=== PATIENT | female | born 1940 | race Caucasian/White ===

== ENCOUNTER 2017-05-27 09:37 | Day surgery (SDC) | payer MEDICARE, OTHER ==
[~2017-05-27 09:37] MED LIST: ALBU90OI61 INH; AMLO5 PO; AMOCLA875; AMOCLA875 PO; ASPI81CH PO; ASPI81EC; ASPI81EC PO; BELPHEER PO; BELPTAB PO; CLIN300 PO; ENOX100I SC; ESCI10 PO; GABA300 PO; HYDACE5 PO; LISI5 PO; METO25ER PO; OPANA; OXYACE5T PO; PRED20 PO; PREG25 PO; RXCLIN; STOMUL PO; TRIA80TC TOP; Ventolin5 MG/1 ML IH; WARF2 PO; WARF5 PO; ZOLP5 PO
== END 2017-05-27 11:45 | disposition home or self-care (01) ==
LOC: WOUND 09:37
PROC: 0HBKXZZ Excision of Right Lower Leg Skin, External Approach (ICD-10-PCS; principal; 2017-05-27)
DX: Z48.00 Encounter for change or removal of nonsurgical wound dressing (principal); I87.331 Chronic venous hypertension (idiopathic) with ulcer and inflammation of right lower extremity; I70.233 Atherosclerosis of native arteries of right leg with ulceration of ankle; D68.4 Acquired coagulation factor deficiency
CPT/HCPCS: 87070; 87205; G0463

== ENCOUNTER 2017-06-03 09:40 | Day surgery (SDC) | payer MEDICARE, OTHER | END 2017-06-03 11:57 | disposition home or self-care (01) | LOC: WOUND 09:40 | PROC: 0HBKXZZ Excision of Right Lower Leg Skin, External Approach (ICD-10-PCS; principal; 2017-06-03) | DX: Z48.00 Encounter for change or removal of nonsurgical wound dressing (principal); I87.331 Chronic venous hypertension (idiopathic) with ulcer and inflammation of right lower extremity; I73.9 Peripheral vascular disease, unspecified; I70.233 Atherosclerosis of native arteries of right leg with ulceration of ankle; D68.4 Acquired coagulation factor deficiency ==

== ENCOUNTER 2017-06-10 09:40 | Day surgery (SDC) | payer MEDICARE, OTHER | END 2017-06-10 10:52 | disposition home or self-care (01) | LOC: WOUND 09:40 | DX: Z48.00 Encounter for change or removal of nonsurgical wound dressing (principal); I87.331 Chronic venous hypertension (idiopathic) with ulcer and inflammation of right lower extremity; L97.812 Non-pressure chronic ulcer of other part of right lower leg with fat layer exposed; I70.233 Atherosclerosis of native arteries of right leg with ulceration of ankle; D68.4 Acquired coagulation factor deficiency; D68.51 Activated protein C resistance; Z79.01 Long term (current) use of anticoagulants ==

== ENCOUNTER 2017-06-30 10:44 | Day surgery (SDC) | payer MEDICARE, OTHER | END 2017-06-30 23:03 | disposition home or self-care (01) | LOC: WOUND 10:44 | PROC: 0HBKXZZ Excision of Right Lower Leg Skin, External Approach (ICD-10-PCS; principal; 2017-06-30) | DX: Z48.00 Encounter for change or removal of nonsurgical wound dressing (principal); I87.331 Chronic venous hypertension (idiopathic) with ulcer and inflammation of right lower extremity; L97.812 Non-pressure chronic ulcer of other part of right lower leg with fat layer exposed; I70.233 Atherosclerosis of native arteries of right leg with ulceration of ankle; D68.4 Acquired coagulation factor deficiency; Z79.01 Long term (current) use of anticoagulants | CPT/HCPCS: G0463 ==

== ENCOUNTER 2017-07-08 00:06 | Day surgery (SDC) | payer MEDICARE, OTHER | END 2017-07-08 10:12 | disposition home or self-care (01) | LOC: WOUND 00:06 | DX: Z48.00 Encounter for change or removal of nonsurgical wound dressing (principal); I87.331 Chronic venous hypertension (idiopathic) with ulcer and inflammation of right lower extremity; I70.233 Atherosclerosis of native arteries of right leg with ulceration of ankle; D68.4 Acquired coagulation factor deficiency | CPT/HCPCS: G0463 ==

== ENCOUNTER 2017-07-22 00:12 | Day surgery (SDC) | payer MEDICARE, OTHER | END 2017-07-22 22:44 | disposition home or self-care (01) | LOC: WOUND 00:12 | PROC: 0HBKXZZ Excision of Right Lower Leg Skin, External Approach (ICD-10-PCS; principal; 2017-07-22) | DX: Z48.00 Encounter for change or removal of nonsurgical wound dressing (principal); I87.331 Chronic venous hypertension (idiopathic) with ulcer and inflammation of right lower extremity; I70.233 Atherosclerosis of native arteries of right leg with ulceration of ankle; D68.4 Acquired coagulation factor deficiency | CPT/HCPCS: G0463 ==

== ENCOUNTER → 2017-11-28 | Outpatient (CLI) | payer MEDICARE, OTHER | END | disposition home or self-care (01) | LOC: LAB SHORT 16:44 → LAB EV 16:44 | DX: L03.115 Cellulitis of right lower limb (principal) | CPT/HCPCS: 87070; 87075; 87205 ==

== ENCOUNTER 2018-08-03 08:58 | Observation (INO) | payer MEDICARE, OTHER ==
[~2018-08-03] VITALS: Ht 149.9 cm; Wt 52.4 kg
[2018-08-03 10:08] LABS: BASOPHILS ABSOLUTE AUTO 0.06 K/mm3 (0.00-0.23); BASOPHILS PERCENT AUTO 1 % (0-2); EOSINOPHILS ABSOLUTE AUTO 0.08 K/mm3 (0.00-0.68); EOSINOPHILS PERCENT AUTO 1 % (0-6); Hematocrit 32.9 % (33.0-51.0); Hemoglobin 10.1 g/dL (11.5-16.0); IMMATURE GRAN ABSOLUTE AUTO 0.01 K/mm3 (0.00-0.10); IMMATURE GRAN PERCENT AUTO 0 % (0-1); LYMPHOCYTES ABSOLUTE AUTO 0.75 K/mm3 (0.84-5.20); LYMPHOCYTES PERCENT AUTO 12 % (21-46); MONOCYTES ABSOLUTE AUTO 0.41 K/mm3 (0.16-1.47); MONOCYTES PERCENT AUTO 6 % (4-13); Mean Corpuscular HGB Conc 30.7 g/dL (31.5-36.5); Mean Corpuscular Volume 91 fL (80-100); Mean Platelet Volume 8.8 fL (9.1-12.4); NEUTROPHILS ABSOLUTE AUTO 5.13 K/mm3 (1.96-9.15); NEUTROPHILS PERCENT AUTO 80 % (41-73); Platelet Count 415 K/mm3 (150-400); RDW Coefficient Variation 13.7 % (11.7-14.2); RDW Standard Deviation 46.3 fL (35.1-46.3); Red Blood Cell Count 3.61 M/mm3 (3.80-5.20); White Blood Cell Count 6.44 K/mm3 (4.00-11.30)
[2018-08-03 10:22] LABS: Anion Gap 10 mmol/L (6-16); Blood Urea Nitrogen 20 mg/dL (8-24); Bun/Creatinine Ratio 28.2 (12.0-20.0); CO2, Blood 26 mmol/L (21-32); Calcium, Blood 9.2 mg/dL (8.5-10.1); Chloride, Blood 108 mmol/L (98-108); Creatinine, Blood 0.71 mg/dL (0.40-1.00); Glomerular Filtration Rate >60 (60-); Glucose, Blood 87 mg/dL (70-99); Potassium, Blood 3.5 mmol/L (3.5-5.5); Sodium, Blood 144 mmol/L (136-145)
[2018-08-03 13:00] LABS: International Normalized Ratio 2.98; Prothrombin Time Results 28.6 Sec (9.7-11.5)
[2018-08-03] MEDS ORDERED: WARF2.5 PO (14:21)
[2018-08-03] MEDS ORDERED: GABA400 PO (14:24)
[2018-08-03] MEDS ORDERED: OXYC5 PO (14:25)
[2018-08-03] MEDS ORDERED: NITR.4SL SL (14:27)
[2018-08-03] MEDS ORDERED: ROSU5 PO (14:31)
[2018-08-03] MEDS ORDERED: COMBIVENT RESPIM4 GM INH (14:33)
--- NOTE | 2018-08-03 14:40 | NUR ---
pt arrived to room 208 from er dept pt is sitting on edge of the bed pt stated that she has been having blood and pus and pain with voids pt stated she was in a snf for vascular surg in [place] and had a pascal cath and had pain with the cath pt stated she has had chills and flank pain but stated she has back pain also stated her dr told her she has small back fx she takes oxy 5 mg every 6 hrs at home for her back pain will call dr briscoe to get this ordered
--- NOTE | 2018-08-03 17:14 | NUR ---
pt visiting with her family
--- NOTE | 2018-08-03 17:18 | NUR ---
pt eating dinner
--- NOTE | 2018-08-03 21:15 | NUR ---
WOUND CARE REMOVED PREVIOUS DRESSING TO BLE. PHOTOS TAKEN. LOCATED BOTH PERIPHERAL PULSES WITH DOPPLER AND MARKED LOCATION. CLEANED THE MULTIPLE VASCULAR ULCER WOUNDS (ONE ON RIGHT INNER ANKLE, ONE ONE LEFT LATERAL ANKLE, 2 SMALLER ON TOP OF LEFT FOOT-SEE PHOTO FOR SIZES) APPLIED XEROFORM TO ALL WOUNDS AND FOAM DRESSING AND SECURED WITH KERLEX.
[2018-08-04 06:04] LABS: BASOPHILS ABSOLUTE AUTO 0.06 K/mm3 (0.00-0.23); BASOPHILS PERCENT AUTO 1 % (0-2); EOSINOPHILS PERCENT AUTO 2 % (0-6); Hematocrit 29.4 % (33.0-51.0); Hemoglobin 9.2 g/dL (11.5-16.0); IMMATURE GRAN ABSOLUTE AUTO 0.01 K/mm3 (0.00-0.10); IMMATURE GRAN PERCENT AUTO 0 % (0-1); LYMPHOCYTES ABSOLUTE AUTO 1.12 K/mm3 (0.84-5.20); LYMPHOCYTES PERCENT AUTO 18 % (21-46); MONOCYTES ABSOLUTE AUTO 0.54 K/mm3 (0.16-1.47); MONOCYTES PERCENT AUTO 9 % (4-13); Mean Corpuscular HGB 28.8 pg (26.0-34.0); Mean Corpuscular HGB Conc 31.3 g/dL (31.5-36.5); Mean Corpuscular Volume 92 fL (80-100); Mean Platelet Volume 8.8 fL (9.1-12.4); NEUTROPHILS ABSOLUTE AUTO 4.27 K/mm3 (1.96-9.15); NEUTROPHILS PERCENT AUTO 70 % (41-73); Platelet Count 391 K/mm3 (150-400); RDW Coefficient Variation 13.8 % (11.7-14.2); RDW Standard Deviation 47.1 fL (35.1-46.3)
--- NOTE | 2018-08-04 06:11 | NUR ---
PT DID WELL DURING NIGHT. BIGGEST COMPLAINT WAS LOWER BACK PAIN R/T COMPRESSION FX'S. PT HAS BEEN AMBLATING WITH ONE PERSON ASSIST TO BR, URINE APPEARS MORE CLEAR. DRESSINGS TO BLE ARE DRY AND INTACT. CONT CURRENT TREATMENT PLAN. CALL LIGHT IN REACH.
[2018-08-04 06:23] LABS: Anion Gap 8 mmol/L (6-16); Blood Urea Nitrogen 13 mg/dL (8-24); Bun/Creatinine Ratio 20.6 (12.0-20.0); CO2, Blood 24 mmol/L (21-32); Calcium, Blood 8.8 mg/dL (8.5-10.1); Chloride, Blood 109 mmol/L (98-108); Creatinine, Blood 0.63 mg/dL (0.40-1.00); Glomerular Filtration Rate >60 (60-); Glucose, Blood 85 mg/dL (70-99); Potassium, Blood 3.5 mmol/L (3.5-5.5); Sodium, Blood 141 mmol/L (136-145)
[2018-08-04 06:24] LABS: International Normalized Ratio 3.49
[2018-08-04] MEDS ORDERED: Nebcin40 MG/ML IV (12:32)
--- NOTE | 2018-08-04 14:30 | NUR ---
powerglide olaced to left upper arm by malcom box rn. discharge instructions reviewed with patients and questions answered. atc appt scheduled for 08/05/18 at 1100. patient discharged to home with her
[2018-08-05] MEDS ORDERED: ACET325 PO (11:25)
== END 2018-08-04 14:25 | disposition home or self-care (01) ==
LOC: ER 08:58 → ERHOLD 08:59 → SURS 08:59 → ER 11:33 → SURS 11:33 → ERHOLD 11:33 → SURS 14:41
PROVIDERS: Physician Assistant; ADMIT Internal Medicine
DX: N39.0 Urinary tract infection, site not specified (principal); B96.5 Pseudomonas (aeruginosa) (mallei) (pseudomallei) as the cause of diseases classified elsewhere; M54.5 Low back pain; R31.9 Hematuria, unspecified; I73.9 Peripheral vascular disease, unspecified; D68.51 Activated protein C resistance; Z87.891 Personal history of nicotine dependence; Z79.899 Other long term (current) drug therapy; Z79.01 Long term (current) use of anticoagulants
CPT/HCPCS: 36415; 80048; 80200; 83605; 85025; 85610; 96374; 99284-25; G0378; J2185; J3260; J7030

== ENCOUNTER 2018-08-05 05:14 | Day surgery (SDC) | payer MEDICARE, OTHER ==
[~2018-08-05 05:14] MED LIST changes: +COMBIVENT RESPIM4 GM INH; +GABA400 PO; +NITR.4SL SL; +Nebcin40 MG/ML IV; +OXYC5 PO; +ROSU5 PO; +WARF2.5 PO
[2018-08-05] MEDS ORDERED: ACET325 PO (11:25)
[2018-08-05 11:58] LABS: Tobramycin, Trough 0.5 ug/mL (0.0-1.9)
== END 2018-08-05 12:58 | disposition home or self-care (01) ==
LOC: ATC 05:14
PROVIDERS: Internal Medicine
DX: N39.0 Urinary tract infection, site not specified (principal)
CPT/HCPCS: 80200; 96365; J3260

== ENCOUNTER 2018-08-07 13:31 | Day surgery (SDC) | payer MEDICARE, OTHER ==
[~2018-08-07 13:31] MED LIST changes: +ACET325 PO
== END 2018-08-07 22:55 | disposition home or self-care (01) ==
LOC: ATC 13:31
DX: N39.0 Urinary tract infection, site not specified (principal)
CPT/HCPCS: J3260

== ENCOUNTER 2018-08-08 13:18 | Day surgery (SDC) | payer MEDICARE, OTHER ==
[2018-08-08 14:23] LABS: Creatinine, Blood 0.84 mg/dL (0.40-1.00); Tobramycin, Trough 0.9 ug/mL (0.0-1.9)
== END 2018-08-08 14:06 | disposition home or self-care (01) ==
LOC: ATC 13:18
PROVIDERS: Internal Medicine
DX: N39.0 Urinary tract infection, site not specified (principal); B96.5 Pseudomonas (aeruginosa) (mallei) (pseudomallei) as the cause of diseases classified elsewhere; D68.51 Activated protein C resistance; M81.0 Age-related osteoporosis without current pathological fracture; Z87.891 Personal history of nicotine dependence; Z88.1 Allergy status to other antibiotic agents; Z79.01 Long term (current) use of anticoagulants
CPT/HCPCS: 80200; 82565; 96365; J3260

== ENCOUNTER 2018-08-09 00:11 | Day surgery (SDC) | payer MEDICARE, OTHER | END 2018-08-09 12:12 | disposition home or self-care (01) | LOC: ATC 00:11 | DX: N39.0 Urinary tract infection, site not specified (principal); B96.5 Pseudomonas (aeruginosa) (mallei) (pseudomallei) as the cause of diseases classified elsewhere; D68.51 Activated protein C resistance; M81.0 Age-related osteoporosis without current pathological fracture; Z87.891 Personal history of nicotine dependence; Z88.1 Allergy status to other antibiotic agents; Z79.01 Long term (current) use of anticoagulants | CPT/HCPCS: 96365; J3260 ==

== ENCOUNTER 2018-08-10 00:13 | Day surgery (SDC) | payer MEDICARE, OTHER ==
[2018-08-10 15:16] LABS: Prothrombin Time Results 46.6 Sec (9.7-11.5)
[2018-08-10 15:20] LABS: International Normalized Ratio 5.1
== END 2018-08-10 15:05 | disposition home or self-care (01) ==
LOC: ATC 00:13
PROVIDERS: Internal Medicine Cardiovascular Disease
DX: N39.0 Urinary tract infection, site not specified (principal); B96.5 Pseudomonas (aeruginosa) (mallei) (pseudomallei) as the cause of diseases classified elsewhere; I34.9 Nonrheumatic mitral valve disorder, unspecified; I35.0 Nonrheumatic aortic (valve) stenosis; Z79.01 Long term (current) use of anticoagulants; D68.51 Activated protein C resistance; M81.0 Age-related osteoporosis without current pathological fracture; Z87.891 Personal history of nicotine dependence; Z88.1 Allergy status to other antibiotic agents
CPT/HCPCS: 85610; 96365; J3260

== ENCOUNTER 2018-08-11 00:09 | Day surgery (SDC) | payer MEDICARE, OTHER | END 2018-08-11 15:00 | disposition home or self-care (01) | LOC: ATC 00:09 | DX: N39.0 Urinary tract infection, site not specified (principal); B96.5 Pseudomonas (aeruginosa) (mallei) (pseudomallei) as the cause of diseases classified elsewhere; Z79.01 Long term (current) use of anticoagulants; D68.51 Activated protein C resistance; M81.0 Age-related osteoporosis without current pathological fracture; Z87.891 Personal history of nicotine dependence; Z88.1 Allergy status to other antibiotic agents | CPT/HCPCS: 96365; J3260 ==

== ENCOUNTER → 2018-08-25 | Outpatient (CLI) | payer MEDICARE, OTHER ==
[2018-08-28 16:18] LABS: Stool Occult Blood Guaiac 1 Neg (Neg)
[2018-08-28 16:19] LABS: Stool Occult Blood Guaiac 2 Neg (Neg); Stool Occult Blood Guaiac 3 Neg (Neg)
== END | disposition home or self-care (01) ==
LOC: LAB 11:00 → LAB SHORT 11:00 → EDSTATUS 08-25 11:10 → LAB FUT 08-25 11:10
PROVIDERS: Internal Medicine
DX: D64.9 Anemia, unspecified (principal)
CPT/HCPCS: 82270

== ENCOUNTER 2018-08-30 00:09 | Day surgery (SDC) | payer MEDICARE, OTHER | END 2018-08-30 23:06 | disposition home or self-care (01) | LOC: WOUND 00:09 | DX: I87.2 Venous insufficiency (chronic) (peripheral) (principal); I77.1 Stricture of artery; L97.312 Non-pressure chronic ulcer of right ankle with fat layer exposed; L97.322 Non-pressure chronic ulcer of left ankle with fat layer exposed; L97.822 Non-pressure chronic ulcer of other part of left lower leg with fat layer exposed; L97.522 Non-pressure chronic ulcer of other part of left foot with fat layer exposed; I73.9 Peripheral vascular disease, unspecified; I25.119 Atherosclerotic heart disease of native coronary artery with unspecified angina pectoris; Z86.718 Personal history of other venous thrombosis and embolism | CPT/HCPCS: G0463 ==

== ENCOUNTER 2018-09-01 13:45 | Day surgery (SDC) | payer MEDICARE, OTHER | END 2018-09-01 23:12 | disposition home or self-care (01) | LOC: WOUND 13:45 | PROC: 0JBP0ZZ Excision of Left Lower Leg Subcutaneous Tissue and Fascia, Open Approach (ICD-10-PCS; principal; 2018-09-01) | PROC: 0JBN0ZZ Excision of Right Lower Leg Subcutaneous Tissue and Fascia, Open Approach (ICD-10-PCS; principal; 2018-09-01) | PROC: 0KBT0ZZ Excision of Left Lower Leg Muscle, Open Approach (ICD-10-PCS; principal; 2018-09-01) | PROC: 0JBR0ZZ Excision of Left Foot Subcutaneous Tissue and Fascia, Open Approach (ICD-10-PCS; principal; 2018-09-01) | DX: L97.325 Non-pressure chronic ulcer of left ankle with muscle involvement without evidence of necrosis (principal); L97.822 Non-pressure chronic ulcer of other part of left lower leg with fat layer exposed; L97.312 Non-pressure chronic ulcer of right ankle with fat layer exposed; L97.422 Non-pressure chronic ulcer of left heel and midfoot with fat layer exposed; L97.522 Non-pressure chronic ulcer of other part of left foot with fat layer exposed ==

== ENCOUNTER 2018-09-14 13:20 | Day surgery (SDC) | payer MEDICARE, OTHER | END 2018-09-14 22:50 | disposition home or self-care (01) | LOC: WOUND 13:20 | DX: L97.312 Non-pressure chronic ulcer of right ankle with fat layer exposed (principal); L97.812 Non-pressure chronic ulcer of other part of right lower leg with fat layer exposed; L97.322 Non-pressure chronic ulcer of left ankle with fat layer exposed; L97.522 Non-pressure chronic ulcer of other part of left foot with fat layer exposed; L97.822 Non-pressure chronic ulcer of other part of left lower leg with fat layer exposed; I73.9 Peripheral vascular disease, unspecified; I25.119 Atherosclerotic heart disease of native coronary artery with unspecified angina pectoris; G82.50 Quadriplegia, unspecified | CPT/HCPCS: G0463 ==

== ENCOUNTER 2018-09-16 12:19 | Emergency (ER) | payer MEDICARE, OTHER ==
[~2018-09-16] VITALS: Ht 160 cm; Wt 58.1 kg
[2018-09-16 12:52] LABS: BASOPHILS ABSOLUTE AUTO 0.02 K/mm3 (0.00-0.23); BASOPHILS PERCENT AUTO 0 % (0-2); EOSINOPHILS ABSOLUTE AUTO 0.05 K/mm3 (0.00-0.68); EOSINOPHILS PERCENT AUTO 0 % (0-6); Hematocrit 34.8 % (33.0-51.0); Hemoglobin 10.7 g/dL (11.5-16.0); IMMATURE GRAN ABSOLUTE AUTO 0.06 K/mm3 (0.00-0.10); IMMATURE GRAN PERCENT AUTO 0 % (0-1); LYMPHOCYTES ABSOLUTE AUTO 1.51 K/mm3 (0.84-5.20); LYMPHOCYTES PERCENT AUTO 11 % (21-46); MONOCYTES ABSOLUTE AUTO 1.02 K/mm3 (0.16-1.47); MONOCYTES PERCENT AUTO 7 % (4-13); Mean Corpuscular HGB 28.1 pg (26.0-34.0); Mean Corpuscular HGB Conc 30.7 g/dL (31.5-36.5); Mean Corpuscular Volume 91 fL (80-100); Mean Platelet Volume 9.3 fL (9.1-12.4); NEUTROPHILS ABSOLUTE AUTO 11.09 K/mm3 (1.96-9.15); NEUTROPHILS PERCENT AUTO 81 % (41-73); Platelet Count 228 K/mm3 (150-400); RDW Coefficient Variation 19.4 % (11.7-14.2); RDW Standard Deviation 64.7 fL (35.1-46.3); Red Blood Cell Count 3.81 M/mm3 (3.80-5.20); White Blood Cell Count 13.75 K/mm3 (4.00-11.30)
[2018-09-16 13:13] LABS: Alanine Aminotransfer (ALT/SGP 18 U/L (12-78); Albumin/Globulin Ratio 0.8 (0.8-1.8); Alk Phos 123 U/L (50-136); Anion Gap 8 mmol/L (6-16); Aspartate Aminotrans (AST/SGOT 12 U/L (12-37); Bilirubin, Total 0.6 mg/dL (0.1-1.0); Blood Urea Nitrogen 32 mg/dL (8-24); Bun/Creatinine Ratio 35.1 (12.0-20.0); CO2, Blood 22 mmol/L (21-32); Calcium, Blood 8.8 mg/dL (8.5-10.1); Chloride, Blood 109 mmol/L (98-108); Creatinine, Blood 0.91 mg/dL (0.40-1.00); Glomerular Filtration Rate >60 (60-); Glucose, Blood 101 mg/dL (70-99); Potassium, Blood 3.9 mmol/L (3.5-5.5); Sodium, Blood 139 mmol/L (136-145); Troponin I <0.015 ng/mL (0.000-0.040)
== END 2018-09-16 14:04 | disposition home or self-care (01) ==
LOC: ER 12:19
PROVIDERS: Internal Medicine
DX: R55 Syncope and collapse (principal); Z87.891 Personal history of nicotine dependence
CPT/HCPCS: 70450; 71046; 80053; 84484; 85025; 93005; 93010; 99285-25

== ENCOUNTER 2018-09-21 13:48 | Day surgery (SDC) | payer MEDICARE, OTHER | END 2018-09-21 22:40 | disposition home or self-care (01) | LOC: WOUND 13:48 | DX: L97.312 Non-pressure chronic ulcer of right ankle with fat layer exposed (principal); L97.322 Non-pressure chronic ulcer of left ankle with fat layer exposed; L97.812 Non-pressure chronic ulcer of other part of right lower leg with fat layer exposed; L97.521 Non-pressure chronic ulcer of other part of left foot limited to breakdown of skin | CPT/HCPCS: G0463 ==

== ENCOUNTER 2018-10-05 13:45 | Day surgery (SDC) | payer MEDICARE, OTHER | END 2018-10-05 23:00 | disposition home or self-care (01) | LOC: WOUND 13:45 | DX: L97.312 Non-pressure chronic ulcer of right ankle with fat layer exposed (principal); L97.322 Non-pressure chronic ulcer of left ankle with fat layer exposed; L97.521 Non-pressure chronic ulcer of other part of left foot limited to breakdown of skin; L97.812 Non-pressure chronic ulcer of other part of right lower leg with fat layer exposed; L97.822 Non-pressure chronic ulcer of other part of left lower leg with fat layer exposed; I73.9 Peripheral vascular disease, unspecified; E78.5 Hyperlipidemia, unspecified; D68.2 Hereditary deficiency of other clotting factors; I11.9 Hypertensive heart disease without heart failure; I50.9 Heart failure, unspecified ==

== ENCOUNTER 2018-10-12 00:27 | Day surgery (SDC) | payer MEDICARE, OTHER | END 2018-10-12 22:44 | disposition home or self-care (01) | LOC: WOUND 00:27 | DX: L97.312 Non-pressure chronic ulcer of right ankle with fat layer exposed (principal); L97.322 Non-pressure chronic ulcer of left ankle with fat layer exposed; L97.812 Non-pressure chronic ulcer of other part of right lower leg with fat layer exposed; L97.521 Non-pressure chronic ulcer of other part of left foot limited to breakdown of skin; I73.9 Peripheral vascular disease, unspecified; Z88.1 Allergy status to other antibiotic agents; Z88.8 Allergy status to other drugs, medicaments and biological substances; Z88.2 Allergy status to sulfonamides ==

== ENCOUNTER 2018-10-29 13:10 | Day surgery (SDC) | payer MEDICARE, OTHER | END 2018-10-29 23:02 | disposition home or self-care (01) | LOC: WOUND 13:10 | DX: L97.312 Non-pressure chronic ulcer of right ankle with fat layer exposed (principal); L97.812 Non-pressure chronic ulcer of other part of right lower leg with fat layer exposed; L97.322 Non-pressure chronic ulcer of left ankle with fat layer exposed; L97.521 Non-pressure chronic ulcer of other part of left foot limited to breakdown of skin; I73.9 Peripheral vascular disease, unspecified; I11.0 Hypertensive heart disease with heart failure; I50.9 Heart failure, unspecified; I25.10 Atherosclerotic heart disease of native coronary artery without angina pectoris; E78.5 Hyperlipidemia, unspecified | CPT/HCPCS: G0463 ==

== ENCOUNTER 2018-11-12 13:23 | Day surgery (SDC) | payer MEDICARE, OTHER | END 2018-11-12 23:05 | disposition home or self-care (01) | LOC: WOUND 13:23 | DX: L97.312 Non-pressure chronic ulcer of right ankle with fat layer exposed (principal); L97.322 Non-pressure chronic ulcer of left ankle with fat layer exposed; L97.822 Non-pressure chronic ulcer of other part of left lower leg with fat layer exposed; L97.812 Non-pressure chronic ulcer of other part of right lower leg with fat layer exposed; L97.521 Non-pressure chronic ulcer of other part of left foot limited to breakdown of skin; I73.9 Peripheral vascular disease, unspecified; I11.0 Hypertensive heart disease with heart failure; I50.9 Heart failure, unspecified; I25.10 Atherosclerotic heart disease of native coronary artery without angina pectoris; E78.5 Hyperlipidemia, unspecified; Z86.718 Personal history of other venous thrombosis and embolism ==

== ENCOUNTER 2018-11-19 13:11 | Day surgery (SDC) | payer MEDICARE, OTHER | END 2018-11-19 23:23 | disposition home or self-care (01) | LOC: WOUND 13:11 | DX: L97.822 Non-pressure chronic ulcer of other part of left lower leg with fat layer exposed (principal); L97.812 Non-pressure chronic ulcer of other part of right lower leg with fat layer exposed; L97.315 Non-pressure chronic ulcer of right ankle with muscle involvement without evidence of necrosis; L97.325 Non-pressure chronic ulcer of left ankle with muscle involvement without evidence of necrosis; I25.119 Atherosclerotic heart disease of native coronary artery with unspecified angina pectoris; I73.9 Peripheral vascular disease, unspecified; I11.0 Hypertensive heart disease with heart failure; I50.9 Heart failure, unspecified; E78.5 Hyperlipidemia, unspecified; Z79.899 Other long term (current) drug therapy; Z79.01 Long term (current) use of anticoagulants; Z86.718 Personal history of other venous thrombosis and embolism ==

== ENCOUNTER 2018-11-26 12:45 | Day surgery (SDC) | payer MEDICARE, OTHER | END 2018-11-26 23:15 | disposition home or self-care (01) | LOC: WOUND 12:45 | DX: L97.315 Non-pressure chronic ulcer of right ankle with muscle involvement without evidence of necrosis (principal); L97.325 Non-pressure chronic ulcer of left ankle with muscle involvement without evidence of necrosis; L97.823 Non-pressure chronic ulcer of other part of left lower leg with necrosis of muscle; L97.812 Non-pressure chronic ulcer of other part of right lower leg with fat layer exposed; L97.521 Non-pressure chronic ulcer of other part of left foot limited to breakdown of skin; I73.9 Peripheral vascular disease, unspecified; I11.0 Hypertensive heart disease with heart failure; I50.9 Heart failure, unspecified; E78.5 Hyperlipidemia, unspecified; I87.2 Venous insufficiency (chronic) (peripheral) | CPT/HCPCS: G0463 ==

== ENCOUNTER 2018-12-10 13:18 | Day surgery (SDC) | payer MEDICARE, OTHER | END 2018-12-11 00:05 | disposition home or self-care (01) | LOC: WOUND 13:18 | DX: L97.315 Non-pressure chronic ulcer of right ankle with muscle involvement without evidence of necrosis (principal); L97.325 Non-pressure chronic ulcer of left ankle with muscle involvement without evidence of necrosis; L97.825 Non-pressure chronic ulcer of other part of left lower leg with muscle involvement without evidence of necrosis; I73.9 Peripheral vascular disease, unspecified; I25.119 Atherosclerotic heart disease of native coronary artery with unspecified angina pectoris; I11.0 Hypertensive heart disease with heart failure; I50.9 Heart failure, unspecified; J44.9 Chronic obstructive pulmonary disease, unspecified; E78.5 Hyperlipidemia, unspecified; Z86.718 Personal history of other venous thrombosis and embolism | CPT/HCPCS: G0463 ==

== ENCOUNTER 2018-12-17 02:46 | Day surgery (SDC) | payer MEDICARE, OTHER | END 2018-12-17 23:43 | disposition home or self-care (01) | LOC: WOUND 02:46 | DX: I83.013 Varicose veins of right lower extremity with ulcer of ankle (principal); L97.312 Non-pressure chronic ulcer of right ankle with fat layer exposed; L97.322 Non-pressure chronic ulcer of left ankle with fat layer exposed; L97.822 Non-pressure chronic ulcer of other part of left lower leg with fat layer exposed; I73.9 Peripheral vascular disease, unspecified; D68.51 Activated protein C resistance; E78.5 Hyperlipidemia, unspecified; J44.9 Chronic obstructive pulmonary disease, unspecified; I35.0 Nonrheumatic aortic (valve) stenosis; I11.0 Hypertensive heart disease with heart failure; I50.9 Heart failure, unspecified | CPT/HCPCS: G0463 ==

== ENCOUNTER 2018-12-24 02:46 | Day surgery (SDC) | payer MEDICARE, OTHER | END 2018-12-24 23:07 | disposition home or self-care (01) | LOC: WOUND 02:46 | DX: L97.312 Non-pressure chronic ulcer of right ankle with fat layer exposed (principal); L97.322 Non-pressure chronic ulcer of left ankle with fat layer exposed; I73.9 Peripheral vascular disease, unspecified | CPT/HCPCS: G0463 ==

== ENCOUNTER 2018-12-31 02:27 | Day surgery (SDC) | payer MEDICARE, OTHER | END 2018-12-31 23:25 | disposition home or self-care (01) | LOC: WOUND 02:27 | DX: L97.312 Non-pressure chronic ulcer of right ankle with fat layer exposed (principal); L97.322 Non-pressure chronic ulcer of left ankle with fat layer exposed; L97.822 Non-pressure chronic ulcer of other part of left lower leg with fat layer exposed; I73.9 Peripheral vascular disease, unspecified; I11.0 Hypertensive heart disease with heart failure; I50.9 Heart failure, unspecified | CPT/HCPCS: G0463 ==

== ENCOUNTER 2019-01-14 02:09 | Day surgery (SDC) | payer MEDICARE, OTHER | END 2019-01-15 00:17 | disposition home or self-care (01) | LOC: WOUND | DX: L97.312 Non-pressure chronic ulcer of right ankle with fat layer exposed (principal); L97.322 Non-pressure chronic ulcer of left ankle with fat layer exposed; I73.9 Peripheral vascular disease, unspecified; I87.2 Venous insufficiency (chronic) (peripheral); E78.5 Hyperlipidemia, unspecified; J44.9 Chronic obstructive pulmonary disease, unspecified; I11.0 Hypertensive heart disease with heart failure; I50.9 Heart failure, unspecified | CPT/HCPCS: G0463 ==

== ENCOUNTER 2019-01-17 08:21 | Day surgery (SDC) | payer MEDICARE, OTHER ==
--- NOTE | 2019-01-17 10:06 | NUR ---
PT AWAKE AND ORIENTED LYING WITH HOB AT 30 DEGREES. HEADACHE RESOLVED. PT PROVIDED FLUIDS PER REQUEST. AT BEDSIDE. SITE WITH [facility] BANDAID TO BACK.
--- NOTE | 2019-01-17 12:01 | NUR ---
Ambulatory in Day Surgery WITH A WALKER. STEADY ON FEET. Discharge instructions reviewed with patient. Patient verbalizes understanding. Copy given to patient to take home. Patient States Post-Procedure ride home has been arranged. Discharged to private car for ride home.PT STATES SHE TOOK BENADRYL PRIOR TO MYLEOGRAM WHICH WOULD EXPLAIN HOW SLEEPY SHE WAS DURING RECOVERY. Patient States Post-Procedure ride home has been arranged.
== END 2019-02-21 23:08 | disposition home or self-care (01) ==
LOC: RAD 08:21 → CT 10:00 → RAD 01-24 09:00 → CT 01-24 10:00 → RAD 02-21 23:08
DX: M47.26 Other spondylosis with radiculopathy, lumbar region (principal); M48.061 Spinal stenosis, lumbar region without neurogenic claudication; M43.16 Spondylolisthesis, lumbar region; M89.38 Hypertrophy of bone, other site; Z87.891 Personal history of nicotine dependence; Z88.1 Allergy status to other antibiotic agents; Z88.8 Allergy status to other drugs, medicaments and biological substances
CPT/HCPCS: 62304; 72132; Q9966

== ENCOUNTER 2019-01-21 12:52 | Day surgery (SDC) | payer MEDICARE, OTHER | END 2019-01-21 23:09 | disposition home or self-care (01) | LOC: WOUND 12:52 | DX: L97.312 Non-pressure chronic ulcer of right ankle with fat layer exposed (principal); L97.322 Non-pressure chronic ulcer of left ankle with fat layer exposed; I73.9 Peripheral vascular disease, unspecified; I11.0 Hypertensive heart disease with heart failure; I50.9 Heart failure, unspecified | CPT/HCPCS: G0463 ==

== ENCOUNTER 2019-02-18 00:55 | Day surgery (SDC) | payer MEDICARE, OTHER | END 2019-02-18 23:29 | disposition home or self-care (01) | LOC: WOUND 00:55 | DX: L97.825 Non-pressure chronic ulcer of other part of left lower leg with muscle involvement without evidence of necrosis (principal); L97.312 Non-pressure chronic ulcer of right ankle with fat layer exposed; L97.322 Non-pressure chronic ulcer of left ankle with fat layer exposed; I73.9 Peripheral vascular disease, unspecified; I11.0 Hypertensive heart disease with heart failure; I50.9 Heart failure, unspecified | CPT/HCPCS: G0463 ==

== ENCOUNTER 2019-02-25 01:57 | Day surgery (SDC) | payer MEDICARE, OTHER | END 2019-02-25 23:02 | disposition home or self-care (01) | LOC: WOUND 01:57 | DX: L97.312 Non-pressure chronic ulcer of right ankle with fat layer exposed (principal); L97.322 Non-pressure chronic ulcer of left ankle with fat layer exposed; I11.0 Hypertensive heart disease with heart failure; I50.9 Heart failure, unspecified; I73.9 Peripheral vascular disease, unspecified | CPT/HCPCS: G0463 ==

== ENCOUNTER 2019-03-11 00:16 | Day surgery (SDC) | payer MEDICARE, OTHER | END 2019-03-11 23:49 | disposition home or self-care (01) | LOC: WOUND 00:16 | DX: L97.825 Non-pressure chronic ulcer of other part of left lower leg with muscle involvement without evidence of necrosis (principal); L97.312 Non-pressure chronic ulcer of right ankle with fat layer exposed; L97.322 Non-pressure chronic ulcer of left ankle with fat layer exposed; I73.9 Peripheral vascular disease, unspecified; I11.0 Hypertensive heart disease with heart failure; I50.9 Heart failure, unspecified | CPT/HCPCS: G0463 ==

== ENCOUNTER 2019-03-18 13:03 | Day surgery (SDC) | payer MEDICARE, OTHER | END 2019-03-18 23:48 | disposition home or self-care (01) | LOC: WOUND 13:03 | DX: L97.825 Non-pressure chronic ulcer of other part of left lower leg with muscle involvement without evidence of necrosis (principal); L97.312 Non-pressure chronic ulcer of right ankle with fat layer exposed; L97.322 Non-pressure chronic ulcer of left ankle with fat layer exposed; L97.521 Non-pressure chronic ulcer of other part of left foot limited to breakdown of skin; I73.9 Peripheral vascular disease, unspecified; I11.0 Hypertensive heart disease with heart failure; I50.9 Heart failure, unspecified | CPT/HCPCS: G0463 ==

== ENCOUNTER 2019-03-30 13:00 | Day surgery (SDC) | payer MEDICARE, OTHER | END 2019-03-30 22:43 | disposition home or self-care (01) | LOC: WOUND 13:00 | DX: L97.312 Non-pressure chronic ulcer of right ankle with fat layer exposed (principal); L97.322 Non-pressure chronic ulcer of left ankle with fat layer exposed; I11.0 Hypertensive heart disease with heart failure; I50.9 Heart failure, unspecified; J44.9 Chronic obstructive pulmonary disease, unspecified; E78.5 Hyperlipidemia, unspecified; I73.9 Peripheral vascular disease, unspecified; Z79.01 Long term (current) use of anticoagulants; Z79.899 Other long term (current) drug therapy; Z79.02 Long term (current) use of antithrombotics/antiplatelets ==

== ENCOUNTER 2019-04-15 12:44 | Day surgery (SDC) | payer MEDICARE, OTHER | END 2019-04-15 23:55 | disposition home or self-care (01) | LOC: WOUND 12:44 | DX: L97.312 Non-pressure chronic ulcer of right ankle with fat layer exposed (principal); L97.322 Non-pressure chronic ulcer of left ankle with fat layer exposed; I11.0 Hypertensive heart disease with heart failure; I50.9 Heart failure, unspecified; J44.9 Chronic obstructive pulmonary disease, unspecified; E78.5 Hyperlipidemia, unspecified; I87.2 Venous insufficiency (chronic) (peripheral); Z79.01 Long term (current) use of anticoagulants; Z79.899 Other long term (current) drug therapy | CPT/HCPCS: Q4133 ==

== ENCOUNTER 2019-04-22 13:05 | Day surgery (SDC) | payer MEDICARE, OTHER | END 2019-04-22 22:52 | disposition home or self-care (01) | LOC: WOUND 13:05 | DX: I96 Gangrene, not elsewhere classified (principal); L97.312 Non-pressure chronic ulcer of right ankle with fat layer exposed; L97.322 Non-pressure chronic ulcer of left ankle with fat layer exposed; D68.2 Hereditary deficiency of other clotting factors; I11.0 Hypertensive heart disease with heart failure; I50.9 Heart failure, unspecified; E78.5 Hyperlipidemia, unspecified; I25.10 Atherosclerotic heart disease of native coronary artery without angina pectoris; G82.50 Quadriplegia, unspecified; J44.9 Chronic obstructive pulmonary disease, unspecified; Z88.1 Allergy status to other antibiotic agents; Z88.2 Allergy status to sulfonamides; Z88.4 Allergy status to anesthetic agent; Z88.8 Allergy status to other drugs, medicaments and biological substances; Z79.01 Long term (current) use of anticoagulants; Z79.899 Other long term (current) drug therapy | CPT/HCPCS: Q4133 ==

== ENCOUNTER 2019-05-06 12:43 | Day surgery (SDC) | payer MEDICARE, OTHER | END 2019-05-06 23:06 | disposition home or self-care (01) | LOC: WOUND 12:43 | DX: I96 Gangrene, not elsewhere classified (principal); L97.312 Non-pressure chronic ulcer of right ankle with fat layer exposed; L97.322 Non-pressure chronic ulcer of left ankle with fat layer exposed; G82.50 Quadriplegia, unspecified; I11.0 Hypertensive heart disease with heart failure; I50.9 Heart failure, unspecified; E78.5 Hyperlipidemia, unspecified; J44.9 Chronic obstructive pulmonary disease, unspecified; I25.10 Atherosclerotic heart disease of native coronary artery without angina pectoris; F41.9 Anxiety disorder, unspecified; D68.2 Hereditary deficiency of other clotting factors; Z88.1 Allergy status to other antibiotic agents; Z88.2 Allergy status to sulfonamides; Z88.4 Allergy status to anesthetic agent; Z88.8 Allergy status to other drugs, medicaments and biological substances; Z86.718 Personal history of other venous thrombosis and embolism; Z79.01 Long term (current) use of anticoagulants; Z79.899 Other long term (current) drug therapy ==

== ENCOUNTER 2019-05-13 12:40 | Day surgery (SDC) | payer MEDICARE, OTHER | END 2019-05-14 22:40 | disposition home or self-care (01) | LOC: WOUND 12:40 | DX: L97.312 Non-pressure chronic ulcer of right ankle with fat layer exposed (principal); L97.322 Non-pressure chronic ulcer of left ankle with fat layer exposed; I87.2 Venous insufficiency (chronic) (peripheral); I73.9 Peripheral vascular disease, unspecified; D68.2 Hereditary deficiency of other clotting factors; J45.909 Unspecified asthma, uncomplicated; E78.5 Hyperlipidemia, unspecified; J44.9 Chronic obstructive pulmonary disease, unspecified; I11.0 Hypertensive heart disease with heart failure; I50.9 Heart failure, unspecified; Z88.2 Allergy status to sulfonamides; Z88.1 Allergy status to other antibiotic agents; Z88.4 Allergy status to anesthetic agent; Z88.8 Allergy status to other drugs, medicaments and biological substances; Z79.01 Long term (current) use of anticoagulants; Z79.899 Other long term (current) drug therapy ==

== ENCOUNTER 2019-06-06 14:41 | Day surgery (SDC) | payer MEDICARE, OTHER | END 2019-06-06 22:41 | disposition home or self-care (01) | LOC: WOUND 14:41 | DX: L97.312 Non-pressure chronic ulcer of right ankle with fat layer exposed (principal); L97.322 Non-pressure chronic ulcer of left ankle with fat layer exposed; I87.2 Venous insufficiency (chronic) (peripheral); I11.0 Hypertensive heart disease with heart failure; I50.9 Heart failure, unspecified; J44.9 Chronic obstructive pulmonary disease, unspecified; E78.5 Hyperlipidemia, unspecified; Z79.01 Long term (current) use of anticoagulants; Z79.899 Other long term (current) drug therapy ==

== ENCOUNTER 2019-06-13 08:11 | Day surgery (SDC) | payer MEDICARE, OTHER | END 2019-06-13 22:41 | disposition home or self-care (01) | LOC: WOUND 08:11 | DX: I96 Gangrene, not elsewhere classified (principal); L97.822 Non-pressure chronic ulcer of other part of left lower leg with fat layer exposed; L97.812 Non-pressure chronic ulcer of other part of right lower leg with fat layer exposed; I87.2 Venous insufficiency (chronic) (peripheral); D68.2 Hereditary deficiency of other clotting factors; E78.5 Hyperlipidemia, unspecified; J44.9 Chronic obstructive pulmonary disease, unspecified; I11.0 Hypertensive heart disease with heart failure; I50.9 Heart failure, unspecified; I35.0 Nonrheumatic aortic (valve) stenosis; G82.50 Quadriplegia, unspecified; F41.8 Other specified anxiety disorders; Z88.1 Allergy status to other antibiotic agents; Z88.2 Allergy status to sulfonamides; Z88.4 Allergy status to anesthetic agent; Z88.8 Allergy status to other drugs, medicaments and biological substances; Z79.01 Long term (current) use of anticoagulants; Z79.899 Other long term (current) drug therapy; I25.10 Atherosclerotic heart disease of native coronary artery without angina pectoris; Z86.718 Personal history of other venous thrombosis and embolism ==

== ENCOUNTER 2019-06-20 00:18 | Day surgery (SDC) | payer MEDICARE, OTHER | END 2019-06-20 22:40 | disposition home or self-care (01) | LOC: WOUND 00:18 | DX: L97.312 Non-pressure chronic ulcer of right ankle with fat layer exposed (principal); L97.322 Non-pressure chronic ulcer of left ankle with fat layer exposed; I87.2 Venous insufficiency (chronic) (peripheral); I11.0 Hypertensive heart disease with heart failure; I50.9 Heart failure, unspecified; E78.5 Hyperlipidemia, unspecified; Z79.01 Long term (current) use of anticoagulants; Z79.899 Other long term (current) drug therapy | CPT/HCPCS: 87070; 87075; 87076; 87185; 87205 ==

== ENCOUNTER 2019-06-27 00:17 | Day surgery (SDC) | payer MEDICARE, OTHER | END 2019-06-27 23:03 | disposition home or self-care (01) | LOC: WOUND 00:17 | DX: L97.312 Non-pressure chronic ulcer of right ankle with fat layer exposed (principal); L97.322 Non-pressure chronic ulcer of left ankle with fat layer exposed; I73.9 Peripheral vascular disease, unspecified; I87.2 Venous insufficiency (chronic) (peripheral) ==

== ENCOUNTER 2019-07-01 11:18 | Day surgery (SDC) | payer MEDICARE, OTHER ==
[2019-07-01] MEDS ORDERED: METR500 PO (18:13)
[2019-07-01] MEDS ORDERED: NEURONTIN300 MG PO (18:16)
[2019-07-01] MEDS ORDERED: DULOXETINE HCL60 M1 PO (18:17)
[2019-07-01] MEDS ORDERED: LOSARTAN POTASS25 M2 PO (18:17)
[2019-07-01] MEDS ORDERED: Cleocin HCl300 MG PO (20:17)
== END 2019-07-01 23:14 | disposition home or self-care (01) ==
LOC: WOUND 11:18
DX: R60.9 Edema, unspecified (principal); L53.9 Erythematous condition, unspecified; L97.312 Non-pressure chronic ulcer of right ankle with fat layer exposed; I73.9 Peripheral vascular disease, unspecified; I87.2 Venous insufficiency (chronic) (peripheral); I11.0 Hypertensive heart disease with heart failure; I50.9 Heart failure, unspecified; J44.9 Chronic obstructive pulmonary disease, unspecified; E78.5 Hyperlipidemia, unspecified; Z79.899 Other long term (current) drug therapy; Z79.01 Long term (current) use of anticoagulants
CPT/HCPCS: G0463

== ENCOUNTER 2019-07-01 16:03 | Emergency (ER) | payer MEDICARE, OTHER ==
[~2019-07-01] VITALS: Ht 147.3 cm; Wt 50.8 kg
[2019-07-01] MEDS ORDERED: METR500 PO (18:13)
[2019-07-01] MEDS ORDERED: NEURONTIN300 MG PO (18:16)
[2019-07-01] MEDS ORDERED: DULOXETINE HCL60 M1 PO (18:17)
[2019-07-01] MEDS ORDERED: LOSARTAN POTASS25 M2 PO (18:17)
[2019-07-01 19:15] LABS: BASOPHILS ABSOLUTE AUTO 0.06 K/mm3 (0.00-0.23); BASOPHILS PERCENT AUTO 1 % (0-2); EOSINOPHILS ABSOLUTE AUTO 0.16 K/mm3 (0.00-0.68); EOSINOPHILS PERCENT AUTO 2 % (0-6); Hematocrit 32.3 % (33.0-51.0); IMMATURE GRAN ABSOLUTE AUTO 0.04 K/mm3 (0.00-0.10); IMMATURE GRAN PERCENT AUTO 0 % (0-1); LYMPHOCYTES ABSOLUTE AUTO 1.37 K/mm3 (0.84-5.20); LYMPHOCYTES PERCENT AUTO 14 % (21-46); MONOCYTES ABSOLUTE AUTO 0.93 K/mm3 (0.16-1.47); MONOCYTES PERCENT AUTO 9 % (4-13); Mean Corpuscular HGB 29.5 pg (26.0-34.0); Mean Corpuscular Volume 95 fL (80-100); NEUTROPHILS PERCENT AUTO 74 % (41-73); Platelet Count 339 K/mm3 (150-400); Red Blood Cell Count 3.39 M/mm3 (3.80-5.20); White Blood Cell Count 9.96 K/mm3 (4.00-11.30)
[2019-07-01 19:29] LABS: International Normalized Ratio 1.95; Prothrombin Time Results 20.1 Sec (9.7-11.5)
[2019-07-01 19:30] LABS: Alanine Aminotransfer (ALT/SGP 10 U/L (12-78); Albumin, Blood 2.9 g/dL (3.4-5.0); Albumin/Globulin Ratio 0.6 (0.8-1.8); Alk Phos 127 U/L (50-136); Anion Gap 6 mmol/L (6-16); Aspartate Aminotrans (AST/SGOT 10 U/L (12-37); Bilirubin, Total 0.3 mg/dL (0.1-1.0); Blood Urea Nitrogen 17 mg/dL (8-24); Bun/Creatinine Ratio 20.3 (12.0-20.0); CO2, Blood 27 mmol/L (21-32); Chloride, Blood 106 mmol/L (98-108); Creatinine, Blood 0.84 mg/dL (0.40-1.00); Globulin, Blood 4.5 g/dL (2.2-4.0); Glomerular Filtration Rate >60 (60-); Glucose, Blood 92 mg/dL (70-99); Potassium, Blood 3.9 mmol/L (3.5-5.5); Sodium, Blood 139 mmol/L (136-145); Total Protein, Blood 7.4 g/dL (6.4-8.2)
[2019-07-01] MEDS ORDERED: Cleocin HCl300 MG PO (20:17)
== END 2019-07-01 20:37 | disposition home or self-care (01) ==
LOC: ER 16:03
PROVIDERS: Emergency Medicine
DX: L03.115 Cellulitis of right lower limb (principal); L03.116 Cellulitis of left lower limb; Z88.2 Allergy status to sulfonamides; Z88.1 Allergy status to other antibiotic agents; Z88.8 Allergy status to other drugs, medicaments and biological substances; Z79.899 Other long term (current) drug therapy; Z79.01 Long term (current) use of anticoagulants; Z87.891 Personal history of nicotine dependence
CPT/HCPCS: 36415; 80053; 83605; 85025; 85610; 93971; 96365; 99284-25

== ENCOUNTER 2019-07-02 11:36 | Emergency (ER) | payer MEDICARE, OTHER ==
[~2019-07-02] VITALS: Ht 147.3 cm; Wt 50.8 kg
[~2019-07-02 11:36] MED LIST changes: +Cleocin HCl300 MG PO; +DULOXETINE HCL60 M1 PO; +LOSARTAN POTASS25 M2 PO; +METR500 PO; +NEURONTIN300 MG PO
== END 2019-07-02 12:47 | disposition home or self-care (01) ==
LOC: ER 11:36
DX: L03.115 Cellulitis of right lower limb (principal); L03.116 Cellulitis of left lower limb; Z88.2 Allergy status to sulfonamides; Z88.1 Allergy status to other antibiotic agents; Z88.8 Allergy status to other drugs, medicaments and biological substances; Z79.899 Other long term (current) drug therapy; Z79.01 Long term (current) use of anticoagulants; Z87.891 Personal history of nicotine dependence
CPT/HCPCS: 96365

== ENCOUNTER 2019-07-02 17:26 | Emergency (ER) | payer MEDICARE, OTHER ==
[~2019-07-02] VITALS: Ht 147.3 cm; Wt 50.8 kg
== END 2019-07-02 18:33 | disposition home or self-care (01) ==
LOC: ER 17:26
DX: L03.115 Cellulitis of right lower limb (principal); L03.116 Cellulitis of left lower limb; Z88.2 Allergy status to sulfonamides; Z88.1 Allergy status to other antibiotic agents; Z88.8 Allergy status to other drugs, medicaments and biological substances; Z79.899 Other long term (current) drug therapy; Z79.01 Long term (current) use of anticoagulants; Z87.891 Personal history of nicotine dependence
CPT/HCPCS: 96365

== ENCOUNTER 2019-07-03 08:13 | Emergency (ER) | payer MEDICARE, OTHER ==
[~2019-07-03] VITALS: Ht 147.3 cm; Wt 45.4 kg
== END 2019-07-03 09:40 | disposition home or self-care (01) ==
LOC: ER 08:13
DX: L03.116 Cellulitis of left lower limb (principal); L03.115 Cellulitis of right lower limb; Z88.2 Allergy status to sulfonamides; Z88.1 Allergy status to other antibiotic agents; Z88.8 Allergy status to other drugs, medicaments and biological substances; Z79.899 Other long term (current) drug therapy; Z79.01 Long term (current) use of anticoagulants; Z87.891 Personal history of nicotine dependence
CPT/HCPCS: 96374

== ENCOUNTER 2019-07-03 14:59 | Emergency (ER) | payer MEDICARE, OTHER ==
[~2019-07-03] VITALS: Ht 147.3 cm; Wt 50.8 kg
== END 2019-07-03 15:59 | disposition home or self-care (01) ==
LOC: ER 14:59
DX: L03.115 Cellulitis of right lower limb (principal); L03.116 Cellulitis of left lower limb; Z88.2 Allergy status to sulfonamides; Z88.1 Allergy status to other antibiotic agents; Z88.8 Allergy status to other drugs, medicaments and biological substances; Z79.899 Other long term (current) drug therapy; Z79.01 Long term (current) use of anticoagulants; Z87.891 Personal history of nicotine dependence
CPT/HCPCS: 96365

== ENCOUNTER 2019-07-08 02:31 | Day surgery (SDC) | payer MEDICARE, OTHER | END 2019-07-08 23:43 | disposition home or self-care (01) | LOC: WOUND 02:31 | DX: L97.312 Non-pressure chronic ulcer of right ankle with fat layer exposed (principal); L97.322 Non-pressure chronic ulcer of left ankle with fat layer exposed; L53.9 Erythematous condition, unspecified; I73.9 Peripheral vascular disease, unspecified; I87.2 Venous insufficiency (chronic) (peripheral); I11.0 Hypertensive heart disease with heart failure; I50.9 Heart failure, unspecified; E78.5 Hyperlipidemia, unspecified; J44.9 Chronic obstructive pulmonary disease, unspecified; Z79.899 Other long term (current) drug therapy; Z79.01 Long term (current) use of anticoagulants | CPT/HCPCS: G0463 ==

== ENCOUNTER 2019-07-14 00:25 | Day surgery (SDC) | payer MEDICARE, OTHER | END 2019-07-14 23:10 | disposition home or self-care (01) | LOC: WOUND 00:25 | DX: L97.312 Non-pressure chronic ulcer of right ankle with fat layer exposed (principal); L97.322 Non-pressure chronic ulcer of left ankle with fat layer exposed; I73.9 Peripheral vascular disease, unspecified; I87.2 Venous insufficiency (chronic) (peripheral); I11.0 Hypertensive heart disease with heart failure; I50.9 Heart failure, unspecified; Z79.899 Other long term (current) drug therapy; Z79.01 Long term (current) use of anticoagulants ==

== ENCOUNTER → 2019-07-18 | Day surgery (SDC) | payer MEDICARE, OTHER | LOC: WOUND 00:26 | DX: L97.312 Non-pressure chronic ulcer of right ankle with fat layer exposed (principal); L97.322 Non-pressure chronic ulcer of left ankle with fat layer exposed; I73.9 Peripheral vascular disease, unspecified; I87.2 Venous insufficiency (chronic) (peripheral); I11.0 Hypertensive heart disease with heart failure; I50.9 Heart failure, unspecified; J44.9 Chronic obstructive pulmonary disease, unspecified; Z79.899 Other long term (current) drug therapy | CPT/HCPCS: G0463 ==

== ENCOUNTER 2019-07-22 00:26 | Day surgery (SDC) | payer MEDICARE, OTHER | END 2019-07-22 23:40 | disposition home or self-care (01) | LOC: WOUND 00:26 | DX: L97.312 Non-pressure chronic ulcer of right ankle with fat layer exposed (principal); L97.322 Non-pressure chronic ulcer of left ankle with fat layer exposed; I73.9 Peripheral vascular disease, unspecified; I87.2 Venous insufficiency (chronic) (peripheral) | CPT/HCPCS: G0463 ==

== ENCOUNTER 2019-08-01 00:37 | Day surgery (SDC) | payer MEDICARE, OTHER | END 2019-08-01 22:48 | disposition home or self-care (01) | LOC: WOUND 00:37 | DX: L97.312 Non-pressure chronic ulcer of right ankle with fat layer exposed (principal); L97.322 Non-pressure chronic ulcer of left ankle with fat layer exposed; I73.9 Peripheral vascular disease, unspecified; I87.2 Venous insufficiency (chronic) (peripheral); I11.0 Hypertensive heart disease with heart failure; I50.9 Heart failure, unspecified; E78.5 Hyperlipidemia, unspecified; D68.51 Activated protein C resistance; J44.9 Chronic obstructive pulmonary disease, unspecified; Z79.01 Long term (current) use of anticoagulants; Z79.899 Other long term (current) drug therapy | CPT/HCPCS: G0463 ==

== ENCOUNTER 2019-08-15 00:32 | Day surgery (SDC) | payer MEDICARE, OTHER | END 2019-08-15 22:51 | disposition home or self-care (01) | LOC: WOUND 00:32 | DX: L97.315 Non-pressure chronic ulcer of right ankle with muscle involvement without evidence of necrosis (principal); L97.825 Non-pressure chronic ulcer of other part of left lower leg with muscle involvement without evidence of necrosis; I73.9 Peripheral vascular disease, unspecified; I87.2 Venous insufficiency (chronic) (peripheral); E78.5 Hyperlipidemia, unspecified; I10 Essential (primary) hypertension; J44.9 Chronic obstructive pulmonary disease, unspecified | CPT/HCPCS: G0463 ==

== ENCOUNTER 2019-09-05 00:11 | Day surgery (SDC) | payer MEDICARE, OTHER | END 2019-09-05 23:07 | disposition home or self-care (01) | LOC: WOUND 00:11 | DX: L97.312 Non-pressure chronic ulcer of right ankle with fat layer exposed (principal); L97.322 Non-pressure chronic ulcer of left ankle with fat layer exposed; I87.2 Venous insufficiency (chronic) (peripheral); I73.9 Peripheral vascular disease, unspecified ==

== ENCOUNTER 2019-09-12 01:18 | Day surgery (SDC) | payer MEDICARE, OTHER | END 2019-09-12 22:53 | disposition home or self-care (01) | LOC: WOUND 01:18 | DX: L97.312 Non-pressure chronic ulcer of right ankle with fat layer exposed (principal); L97.322 Non-pressure chronic ulcer of left ankle with fat layer exposed; I73.9 Peripheral vascular disease, unspecified; I87.2 Venous insufficiency (chronic) (peripheral); I11.0 Hypertensive heart disease with heart failure; I50.9 Heart failure, unspecified; E78.5 Hyperlipidemia, unspecified; J44.9 Chronic obstructive pulmonary disease, unspecified; Z79.01 Long term (current) use of anticoagulants; Z79.899 Other long term (current) drug therapy ==

== ENCOUNTER → 2019-09-15 | Outpatient (CLI) | payer MEDICARE, OTHER ==
[2019-09-19 14:11] LABS: HPV 16 Negative (Negative); HPV 18 Negative (Negative); HPV OTHER HR TYPES Negative (Negative)
== END | disposition home or self-care (01) ==
LOC: LAB SHORT 13:45 → LAB 13:45
PROVIDERS: Obstetrics & Gynecology
DX: Z01.419 Encounter for gynecological examination (general) (routine) without abnormal findings (principal)
CPT/HCPCS: 87624; G0123

== ENCOUNTER 2019-09-19 00:15 | Day surgery (SDC) | payer MEDICARE, OTHER | END 2019-09-19 22:48 | disposition home or self-care (01) | LOC: WOUND 00:15 | DX: L97.312 Non-pressure chronic ulcer of right ankle with fat layer exposed (principal); L97.322 Non-pressure chronic ulcer of left ankle with fat layer exposed; I73.9 Peripheral vascular disease, unspecified; I87.2 Venous insufficiency (chronic) (peripheral); I11.0 Hypertensive heart disease with heart failure; I50.9 Heart failure, unspecified; E78.5 Hyperlipidemia, unspecified; J44.9 Chronic obstructive pulmonary disease, unspecified; Z79.899 Other long term (current) drug therapy; Z79.01 Long term (current) use of anticoagulants ==

== ENCOUNTER → 2019-09-21 | Outpatient (CLI) | payer MEDICARE, OTHER | END | disposition home or self-care (01) | LOC: PLD 10:01 → LAB SHORT 10:01 | DX: N71.1 Chronic inflammatory disease of uterus (principal) | CPT/HCPCS: 88305 ==

== ENCOUNTER 2019-09-26 00:13 | Day surgery (SDC) | payer MEDICARE, OTHER | END 2019-09-26 22:57 | disposition home or self-care (01) | LOC: WOUND 00:13 | DX: L97.312 Non-pressure chronic ulcer of right ankle with fat layer exposed (principal); L97.822 Non-pressure chronic ulcer of other part of left lower leg with fat layer exposed; I73.9 Peripheral vascular disease, unspecified; I87.2 Venous insufficiency (chronic) (peripheral); I11.0 Hypertensive heart disease with heart failure; I50.9 Heart failure, unspecified; Z79.899 Other long term (current) drug therapy; Z79.01 Long term (current) use of anticoagulants ==

== ENCOUNTER 2019-10-04 12:28 | Day surgery (SDC) | payer MEDICARE, OTHER | END 2019-10-04 22:37 | disposition home or self-care (01) | LOC: WOUND 12:28 | DX: L97.312 Non-pressure chronic ulcer of right ankle with fat layer exposed (principal); L97.322 Non-pressure chronic ulcer of left ankle with fat layer exposed; I73.9 Peripheral vascular disease, unspecified; I87.2 Venous insufficiency (chronic) (peripheral) ==

== ENCOUNTER 2019-10-28 00:37 | Day surgery (SDC) | payer MEDICARE, OTHER | END 2019-10-28 23:17 | disposition home or self-care (01) | LOC: WOUND 00:37 | DX: L97.312 Non-pressure chronic ulcer of right ankle with fat layer exposed (principal); L97.322 Non-pressure chronic ulcer of left ankle with fat layer exposed; I73.9 Peripheral vascular disease, unspecified; I87.2 Venous insufficiency (chronic) (peripheral); E78.5 Hyperlipidemia, unspecified; J44.9 Chronic obstructive pulmonary disease, unspecified; I11.0 Hypertensive heart disease with heart failure; I50.9 Heart failure, unspecified ==

== ENCOUNTER 2019-11-21 00:33 | Day surgery (SDC) | payer MEDICARE, OTHER | END 2019-11-21 22:39 | disposition home or self-care (01) | LOC: WOUND 00:33 | DX: L97.312 Non-pressure chronic ulcer of right ankle with fat layer exposed (principal); L97.322 Non-pressure chronic ulcer of left ankle with fat layer exposed; I73.9 Peripheral vascular disease, unspecified; I87.2 Venous insufficiency (chronic) (peripheral); E78.5 Hyperlipidemia, unspecified; J44.9 Chronic obstructive pulmonary disease, unspecified; I11.0 Hypertensive heart disease with heart failure; I50.9 Heart failure, unspecified; Z79.899 Other long term (current) drug therapy; Z79.01 Long term (current) use of anticoagulants; Z79.02 Long term (current) use of antithrombotics/antiplatelets ==

== ENCOUNTER 2019-12-05 00:27 | Day surgery (SDC) | payer MEDICARE, OTHER | END 2019-12-05 22:47 | disposition home or self-care (01) | LOC: WOUND 00:27 | DX: L97.312 Non-pressure chronic ulcer of right ankle with fat layer exposed (principal); L97.322 Non-pressure chronic ulcer of left ankle with fat layer exposed; I73.9 Peripheral vascular disease, unspecified; I87.2 Venous insufficiency (chronic) (peripheral); I11.0 Hypertensive heart disease with heart failure; I50.9 Heart failure, unspecified; J44.9 Chronic obstructive pulmonary disease, unspecified; E78.5 Hyperlipidemia, unspecified; Z79.899 Other long term (current) drug therapy; Z79.01 Long term (current) use of anticoagulants | CPT/HCPCS: G0463 ==

== ENCOUNTER 2020-01-31 01:53 | Day surgery (SDC) | payer MEDICARE, OTHER | END 2020-01-31 22:38 | disposition home or self-care (01) | LOC: WOUND 01:53 | DX: L97.312 Non-pressure chronic ulcer of right ankle with fat layer exposed (principal); L97.322 Non-pressure chronic ulcer of left ankle with fat layer exposed; I73.9 Peripheral vascular disease, unspecified; I87.2 Venous insufficiency (chronic) (peripheral) ==

== ENCOUNTER 2020-03-21 00:44 | Day surgery (SDC) | payer MEDICARE, OTHER | END 2020-03-21 22:47 | disposition home or self-care (01) | LOC: WOUND 00:44 | DX: L97.312 Non-pressure chronic ulcer of right ankle with fat layer exposed (principal); L97.322 Non-pressure chronic ulcer of left ankle with fat layer exposed; I73.9 Peripheral vascular disease, unspecified; I87.2 Venous insufficiency (chronic) (peripheral); I11.0 Hypertensive heart disease with heart failure; I50.9 Heart failure, unspecified; E78.5 Hyperlipidemia, unspecified; Z79.899 Other long term (current) drug therapy; Z79.01 Long term (current) use of anticoagulants ==

== ENCOUNTER 2020-04-06 01:01 | Day surgery (SDC) | payer MEDICARE, OTHER | END 2020-04-06 23:12 | disposition home or self-care (01) | LOC: WOUND 01:01 | DX: L97.312 Non-pressure chronic ulcer of right ankle with fat layer exposed (principal); L97.322 Non-pressure chronic ulcer of left ankle with fat layer exposed; I73.9 Peripheral vascular disease, unspecified; I87.2 Venous insufficiency (chronic) (peripheral); I10 Essential (primary) hypertension; E78.5 Hyperlipidemia, unspecified; J44.9 Chronic obstructive pulmonary disease, unspecified; Z79.899 Other long term (current) drug therapy ==

== ENCOUNTER 2020-04-12 00:25 | Day surgery (SDC) | payer MEDICARE, OTHER | END 2020-04-12 23:13 | disposition home or self-care (01) | LOC: WOUND 00:25 | DX: I96 Gangrene, not elsewhere classified (principal); L97.822 Non-pressure chronic ulcer of other part of left lower leg with fat layer exposed; L97.312 Non-pressure chronic ulcer of right ankle with fat layer exposed; I87.2 Venous insufficiency (chronic) (peripheral); D68.2 Hereditary deficiency of other clotting factors; E78.5 Hyperlipidemia, unspecified; J44.9 Chronic obstructive pulmonary disease, unspecified; I11.0 Hypertensive heart disease with heart failure; I50.9 Heart failure, unspecified; F41.8 Other specified anxiety disorders; I25.10 Atherosclerotic heart disease of native coronary artery without angina pectoris; G82.50 Quadriplegia, unspecified; Z88.1 Allergy status to other antibiotic agents; Z88.2 Allergy status to sulfonamides; Z88.4 Allergy status to anesthetic agent; Z88.8 Allergy status to other drugs, medicaments and biological substances; Z79.01 Long term (current) use of anticoagulants; Z79.899 Other long term (current) drug therapy; Z86.718 Personal history of other venous thrombosis and embolism ==

== ENCOUNTER 2020-04-24 01:15 | Day surgery (SDC) | payer MEDICARE, OTHER | END 2020-04-24 23:35 | disposition home or self-care (01) | LOC: WOUND 01:15 | DX: I96 Gangrene, not elsewhere classified (principal); L97.822 Non-pressure chronic ulcer of other part of left lower leg with fat layer exposed; L97.312 Non-pressure chronic ulcer of right ankle with fat layer exposed; I87.2 Venous insufficiency (chronic) (peripheral); D68.51 Activated protein C resistance; G82.50 Quadriplegia, unspecified; F41.8 Other specified anxiety disorders; I10 Essential (primary) hypertension; E78.5 Hyperlipidemia, unspecified; J44.9 Chronic obstructive pulmonary disease, unspecified; I25.10 Atherosclerotic heart disease of native coronary artery without angina pectoris; Z88.1 Allergy status to other antibiotic agents; Z88.2 Allergy status to sulfonamides; Z88.4 Allergy status to anesthetic agent; Z88.8 Allergy status to other drugs, medicaments and biological substances; Z79.01 Long term (current) use of anticoagulants; Z79.899 Other long term (current) drug therapy; Z86.718 Personal history of other venous thrombosis and embolism ==

== ENCOUNTER 2020-11-15 12:44 | Day surgery (SDC) | payer MEDICARE, OTHER ==
[~2020-11-15] VITALS: Ht 147.3 cm; Wt 55.1 kg
--- NOTE | 2020-11-15 13:25 | NUR ---
11/15/20 1325 Choco Campbell AND TETRACAINE PLACED AT 1320
--- NOTE | 2020-11-15 15:45 | NUR ---
11/15/20 1545 Julisa Salmeron [id number] COMPLETED IN OR. D/C IV IN SDU.
== END 2020-11-15 15:07 | disposition home or self-care (01) ==
LOC: ORSCSDS 12:44
PROVIDERS: Ophthalmology
PROC: 08RK3JZ Replacement of Left Lens with Synthetic Substitute, Percutaneous Approach (ICD-10-PCS; principal; 2020-11-15 14:00)
DX: H25.12 Age-related nuclear cataract, left eye (principal); I25.10 Atherosclerotic heart disease of native coronary artery without angina pectoris; J44.9 Chronic obstructive pulmonary disease, unspecified; E78.5 Hyperlipidemia, unspecified; Z79.01 Long term (current) use of anticoagulants; Z79.899 Other long term (current) drug therapy
CPT/HCPCS: J2001; J2250; J7040; V2632

== ENCOUNTER → 2020-11-28 | Outpatient (CLI) | payer MEDICARE, OTHER | LOC: LAB 19:29 → LAB SHORT 19:29 | DX: L08.9 Local infection of the skin and subcutaneous tissue, unspecified (principal); Z88.1 Allergy status to other antibiotic agents; Z88.2 Allergy status to sulfonamides; Z88.4 Allergy status to anesthetic agent; Z88.8 Allergy status to other drugs, medicaments and biological substances | CPT/HCPCS: 87070; 87077; 87147; 87186; 87205 ==

== ENCOUNTER → 2020-12-14 | Outpatient (CLI) | payer MEDICARE, OTHER | LOC: LAB 15:30 → LAB SHORT 15:30 | DX: I83.013 Varicose veins of right lower extremity with ulcer of ankle (principal); I83.018 Varicose veins of right lower extremity with ulcer other part of lower leg; I83.028 Varicose veins of left lower extremity with ulcer other part of lower leg; I87.2 Venous insufficiency (chronic) (peripheral); R60.0 Localized edema; A49.02 Methicillin resistant Staphylococcus aureus infection, unspecified site; Z71.89 Other specified counseling | CPT/HCPCS: 87070; 87077; 87186; 87205 ==

== ENCOUNTER 2021-09-12 06:40 | Day surgery (SDC) | payer MEDICARE, OTHER ==
[2021-09-11 09:00] LABS: International Normalized Ratio 2.68; Prothrombin Time Results 26.4 Sec (9.7-11.5)
[2021-09-11 09:22] LABS: Bun/Creatinine Ratio 17.9 (12.0-20.0); Calcium, Blood 9.7 mg/dL (8.5-10.1); Creatinine, Blood 1.34 mg/dL (0.40-1.00); Potassium, Blood 4.4 mmol/L (3.5-5.5)
[~2021-09-12] VITALS: Ht 142.2 cm; Wt 56.6 kg
[~2021-09-12 06:40] MED LIST changes: +Aspir 8181 MG PO
[2021-09-12] MEDS ORDERED: ASPI325 PO (07:56)
== END 2021-09-12 10:10 | disposition home or self-care (01) ==
LOC: ORSCSDS 06:40
PROVIDERS: Obstetrics & Gynecology
PROC: 0UDB8ZX Extraction of Endometrium, Via Natural or Artificial Opening Endoscopic, Diagnostic (ICD-10-PCS; principal; 2021-09-12 08:15)
DX: N71.1 Chronic inflammatory disease of uterus (principal); D68.51 Activated protein C resistance; J44.9 Chronic obstructive pulmonary disease, unspecified; I25.10 Atherosclerotic heart disease of native coronary artery without angina pectoris; I12.9 Hypertensive chronic kidney disease with stage 1 through stage 4 chronic kidney disease, or unspecified chronic kidney disease; N18.30 Chronic kidney disease, stage 3 unspecified; Z87.891 Personal history of nicotine dependence; Z79.01 Long term (current) use of anticoagulants
CPT/HCPCS: 36415; 80048; 85610; 85730; A9270; J2704; J7120

== ENCOUNTER → 2021-10-16 | Outpatient (CLI) | payer MEDICARE, OTHER ==
[~2021-10-16] MED LIST changes: +ASPI325 PO
== END | disposition home or self-care (01) ==
LOC: LAB SHORT 14:50
DX: L08.9 Local infection of the skin and subcutaneous tissue, unspecified (principal)
CPT/HCPCS: 87070; 87077; 87186; 87205

== ENCOUNTER 2021-12-15 08:44 | Inpatient (IN) | payer MEDICARE, OTHER ==
[~2021-12-15] VITALS: Ht 162.6 cm; Wt 60.5 kg
[2021-12-15 09:12] LABS: BASOPHILS ABSOLUTE AUTO 0.03 K/mm3 (0.00-0.23); BASOPHILS PERCENT AUTO 0 % (0-2); EOSINOPHILS PERCENT AUTO 0 % (0-6); Hemoglobin 12.5 g/dL (11.5-16.0); IMMATURE GRAN ABSOLUTE AUTO 0.02 K/mm3 (0.00-0.10); IMMATURE GRAN PERCENT AUTO 0 % (0-1); LYMPHOCYTES ABSOLUTE AUTO 1.33 K/mm3 (0.84-5.20); LYMPHOCYTES PERCENT AUTO 9 % (21-46); MONOCYTES ABSOLUTE AUTO 1.15 K/mm3 (0.16-1.47); MONOCYTES PERCENT AUTO 8 % (4-13); Mean Corpuscular HGB 30.9 pg (26.0-34.0); Mean Corpuscular HGB Conc 32.1 g/dL (31.5-36.5); Mean Corpuscular Volume 97 fL (80-100); Mean Platelet Volume 9.5 fL (9.1-12.4); NEUTROPHILS ABSOLUTE AUTO 12.14 K/mm3 (1.96-9.15); NEUTROPHILS PERCENT AUTO 83 % (41-73); Platelet Count 245 K/mm3 (150-400); RDW Coefficient Variation 13.2 % (11.7-14.2); RDW Standard Deviation 47.1 fL (35.1-46.3); Red Blood Cell Count 4.04 M/mm3 (3.80-5.20); White Blood Cell Count 14.67 K/mm3 (4.00-11.30)
[2021-12-15 09:36] LABS: International Normalized Ratio 1.92; Prothrombin Time Results 19.3 Sec (9.7-11.5)
[2021-12-15 09:37] LABS: Albumin, Blood 3.5 g/dL (3.4-5.0); Albumin/Globulin Ratio 0.9 (0.8-1.8); Bilirubin, Total 0.5 mg/dL (0.1-1.0); Calcium, Blood 10.9 mg/dL (8.5-10.1); Creatine Kinase MB 2.4 ng/mL (0.0-3.6); Creatine Kinase MB Index 2.6 (0.0-4.0); Creatinine, Blood 1.36 mg/dL (0.40-1.00); Globulin, Blood 3.9 g/dL (2.2-4.0); Potassium, Blood 4.9 mmol/L (3.5-5.5); Total Protein, Blood 7.4 g/dL (6.4-8.2)
[2021-12-15 09:54] LABS: Source, Urine Clean Catch
[2021-12-15 09:56] LABS: Appearance, Urine Clear (Clear); Blood, Urine 2+ (Neg); Color, Urine Yellow (P-Yellow); Glucose Qualitative, Urine Neg (Neg); Ketones, Urine 1+ (Neg); Leukocyte Esterase, Urine 1+ (Neg); Nitrite, Urine Neg (Neg); Protein, Urine 2+ (Neg); Urobilinogen, Urine 1+ (Normal)
[2021-12-15 10:03] LABS: Bilirubin, Urine 1+ (Neg)
[2021-12-15 10:05] LABS: Amorphous Light (0-Heavy); Bacteria Rare /hpf; Red Blood Cells, Urine 0-2 /hpf (0-2); Squamous Epithelial Cells Rare /hpf (Few); White Blood Cells, Urine 0-2 /hpf (0-5)
--- NOTE | 2021-12-15 17:40 | NUR ---
DAY SHIFT SUMMARY ER ADMIT TO MEDICAL FLOOR, PT IS CONFUSED, UNABLE TO AMBULATE, DIFFICULTY WITH SHIFTING SELF IN BED, ABLE TO ROLL/TURN WITH ASSISTANCE. PT ON RA, TELE WITH NSR, CURRENTLY INCONT OF BOWELS WITH DIARRHEA. VASCULAR WOUNDS TO LOWER EXTREMITIES BILATERAL, EACH JUST ABOVE THE ANKLE, RT IN INNER AND LT IS OUTER ANKLE. PT STATES SHE HAS HAD THE ONE ON THE RIGHT FOR 16 YEARS. PT IS LETHARGIC WITH DIFFICULTY ANSWERING MOST QUESTIONS STATING SHE DOES NOT REMEMBER. PICTURES PLACED IN CHART OF WOUNDS, PT IS SEEN BY OUTPT WOUND CARE WEEKLY. PT'S SON IS A HOSPITALIST IS [place] AND ABLE TO PROVIDE PT HX TO ER. ORIENTED TO ROOM AND CALL LIGHT, CALL LIGHT IN REACH, NOT ABLE TO CALL APPROPRIATE, FREQUENT ROUNDING.
[2021-12-16 02:14] LABS: Adenovirus F 40/41 Not Detected (NOT DETECT); Astrovirus Not Detected (NOT DETECT); Campylobacter Sp Not Detected (NOT DETECT); Cryptosporidium Not Detected (NOT DETECT); Cyclospora Cayetanensis Not Detected (NOT DETECT); E. Coli O157 Not Detected (NOT DETECT); Entamoeba Histolytica Not Detected (NOT DETECT); Enteroaggregative E. coli-EAEC Not Detected (NOT DETECT); Enteropathogenic E. coli-EPEC Not Detected (NOT DETECT); Enterotoxigenic E. coli-ETEC Not Detected (NOT DETECT); Giardia Lamblia Not Detected (NOT DETECT); Norovirus GI/GII Not Detected (NOT DETECT); Plesiomonas Shigelloides Not Detected (NOT DETECT); Rotavirus A Not Detected (NOT DETECT); Salmonella Sp Not Detected (NOT DETECT); Sapovirus Not Detected (NOT DETECT); Shiga Toxin-prod E. coli-STEC Not Detected (NOT DETECT); Shigella/Enteroin E. coli-EIEC Not Detected (NOT DETECT); Vibrio Cholerae Not Detected (NOT DETECT); Vibrio Sp Not Detected (NOT DETECT); Yersinia Enterocolitica Not Detected (NOT DETECT)
[2021-12-16 04:39] LABS: BASOPHILS ABSOLUTE AUTO 0.03 K/mm3 (0.00-0.23); BASOPHILS PERCENT AUTO 0 % (0-2); EOSINOPHILS ABSOLUTE AUTO 0.04 K/mm3 (0.00-0.68); EOSINOPHILS PERCENT AUTO 1 % (0-6); Hematocrit 36.1 % (33.0-51.0); Hemoglobin 11.6 g/dL (11.5-16.0); IMMATURE GRAN ABSOLUTE AUTO 0.03 K/mm3 (0.00-0.10); IMMATURE GRAN PERCENT AUTO 0 % (0-1); LYMPHOCYTES ABSOLUTE AUTO 1.16 K/mm3 (0.84-5.20); LYMPHOCYTES PERCENT AUTO 13 % (21-46); MONOCYTES ABSOLUTE AUTO 0.75 K/mm3 (0.16-1.47); MONOCYTES PERCENT AUTO 9 % (4-13); Mean Corpuscular HGB 31.4 pg (26.0-34.0); Mean Corpuscular HGB Conc 32.1 g/dL (31.5-36.5); Mean Corpuscular Volume 98 fL (80-100); Mean Platelet Volume 9.8 fL (9.1-12.4); NEUTROPHILS ABSOLUTE AUTO 6.84 K/mm3 (1.96-9.15); NEUTROPHILS PERCENT AUTO 77 % (41-73); Platelet Count 203 K/mm3 (150-400); RDW Coefficient Variation 13.1 % (11.7-14.2); White Blood Cell Count 8.85 K/mm3 (4.00-11.30)
[2021-12-16 04:50] LABS: International Normalized Ratio 1.37; Prothrombin Time Results 14.1 Sec (9.7-11.5)
[2021-12-16 05:05] LABS: Magnesium, Blood 1.6 mg/dL (1.6-2.4); Thyroid Stimulating Hormone 0.722 uIU/mL (0.360-4.800)
--- NOTE | 2021-12-16 05:08 | NUR ---
SHIFT SUMMARY PT VERY LETHARGIC AT START OF SHIFT. COULD WAKE PT BUT SHE WOULD QUICKLY FALL BACK ASLEEP AND WAS MOSTLY NONVERBAL. THEN JUST BEFORE 2200 PT WOKE AND WAS MUCH MORE ALERT. CONVERSING AND ANSWERING QUESTIONS APPROPRIATELY. PT REPORTS THAT SHE BELIEVES THAT SHE HAS FOOD POISONING AND THAT SHE WAS THROWING UP BURGERS SHE HAD EATEN FROM [employer]. PT HAS REPORTED SOME NAUSEA THIS EVENING, MEDICATED X 1 W/ ZOFRAN. LOOSE STOOL FREQUENTLY THROUGHOUT THE NIGHT. GI PANEL SENT AND RETURNED NEGATIVE. IV FLUIDS STARTED AND CONTINUE INFUSING. PT SWALLOWED HER PILLS WELL WITH WATER BUT OTHERWISE HAD NO ORAL INTAKE. DAUGHTER JIMMY UPDATED OVER THE PHONE. TELMETRY READING SINUS RHYTHM 76. VASCULAR ULCERS TO BLE'S DRESSED BY DAY RN AND REMAINED C/D/I. VITAL SIGNS STABLE. WILL CONTINUE TO MONITOR.
[2021-12-16 05:11] LABS: Albumin, Blood 2.7 g/dL (3.4-5.0); Albumin/Globulin Ratio 0.8 (0.8-1.8); Bilirubin, Total 0.6 mg/dL (0.1-1.0); Bun/Creatinine Ratio 24.3 (12.0-20.0); Calcium, Blood 8.9 mg/dL (8.5-10.1); Creatinine, Blood 1.11 mg/dL (0.40-1.00); Globulin, Blood 3.5 g/dL (2.2-4.0); Total Protein, Blood 6.2 g/dL (6.4-8.2)
--- NOTE | 2021-12-16 19:58 | NUR ---
END OF SHIFT SUMMARY: AMOUNT AND FREQUENCY OF DIARRHEA DECREASED THROUGHOUT THE DAY. PATIENT REPORTED MILD ABDOMINAL PAIN THIS MORNING, BUT DENIED PAIN OR NAUSEA THE REST OF THE SHIFT. PATIENT TOLERATED CLEARS FOR BREAKFAST. ADVANCEMENT TO REGULAR DIET WAS ORDERED. PATIENT REPORTED FEELINGS OF BEING FULL AND UNCOMFORTABLE. DECREASED BACK TO CLEARS. PATIENT'S MENTATION HAS IMPROVED WHEN COMPARED TO REPORT BY ADMITTING RN. PATIENT ALERT, ANSWERING QUESTIONS, AND FOLLOWING DIRECTIONS THROUGHOUT THE SHIFT. PATIENT DOES DISPLAY SOME STML. FOR EXAMPLE, UNABLE TO REMEMBER THAT SHE SHOULD CALL STAFF FOR [facility] TRANSFERS TO [facility]. BED ALARM AND CHAIR ALARMS ON. PATIENT WORKED WITH PT AND OT. PATIENT VISITED BY AND RECEIVED PHONE CALL FROM HER DAUGHTER JIMMY.
[2021-12-17 04:33] LABS: Hematocrit 32.5 % (33.0-51.0); Hemoglobin 10.5 g/dL (11.5-16.0); Mean Corpuscular HGB Conc 32.3 g/dL (31.5-36.5); Mean Corpuscular Volume 96 fL (80-100); Mean Platelet Volume 9.6 fL (9.1-12.4); Platelet Count 168 K/mm3 (150-400); RDW Coefficient Variation 12.7 % (11.7-14.2); RDW Standard Deviation 45.3 fL (35.1-46.3); Red Blood Cell Count 3.39 M/mm3 (3.80-5.20); White Blood Cell Count 5.89 K/mm3 (4.00-11.30)
[2021-12-17 04:46] LABS: International Normalized Ratio 1.25; Prothrombin Time Results 12.9 Sec (9.7-11.5)
[2021-12-17 04:49] LABS: Albumin, Blood 2.7 g/dL (3.4-5.0); Albumin/Globulin Ratio 0.8 (0.8-1.8); Bilirubin, Total 0.5 mg/dL (0.1-1.0); Bun/Creatinine Ratio 12.7 (12.0-20.0); Calcium, Blood 8.1 mg/dL (8.5-10.1); Creatinine, Blood 1.1 mg/dL (0.40-1.00); Globulin, Blood 3.2 g/dL (2.2-4.0); Potassium, Blood 3.7 mmol/L (3.5-5.5); Total Protein, Blood 5.9 g/dL (6.4-8.2)
--- NOTE | 2021-12-17 04:59 | NUR ---
SHIFT SUMMARY A/O 2-3, 1P MOD ASSIST WITH FWW AND GB. NS RUNNING AT 100 ML/HR. DENIES PAIN OR SOB. TELE SR WITH PVC'S IN THE 80S. OCC ATTEMPTS TO REMOVE TELE, EASILY REDIRECTED. NO ACUTE CHANGES AT THIS TIME. BED IN LOWEST POSITION WITH CALL LIGHT IN REACH. WILL CONTINUE TO MONITOR AND REPORT TO ONCOMING RN.
[2021-12-17] MEDS ORDERED: LOSA50 PO (10:03)
[2021-12-17] MEDS ORDERED: BANATROL PLUS1 EAC1 PO (10:04)
[2021-12-17] MEDS ORDERED: B-12500 MC2 PO (10:06)
[2021-12-17] MEDS ORDERED: CIPR250 PO (10:08)
[2021-12-17] MEDS ORDERED: METR500 PO (10:08)
--- NOTE | 2021-12-17 11:55 | NUR ---
DISCHARGE INSTRUCTIONS COMPLETED AND DISCUSSED WITH AND . EXPLAINED IMPORTANCE OF EATING A SOFT BLAND MEAL UNTIL NAUSEA FINALLY RESOLVES. DISCUSSED IMPORTANCE OF TAKING ALL OF HER ANTIBIOTICS UNTIL THEY ARE GONE. TO CURB VIA W/C.
== END 2021-12-17 11:44 | disposition home health service (06) | DRG 682 ==
LOC: ER 08:44 → MEDS 16:05
PROVIDERS: Emergency Medicine; Internal Medicine; ADMIT Internal Medicine
DX: N17.9 Acute kidney failure, unspecified (principal); G93.41 Metabolic encephalopathy; D68.51 Activated protein C resistance; K52.9 Noninfective gastroenteritis and colitis, unspecified; D51.9 Vitamin B12 deficiency anemia, unspecified; J44.9 Chronic obstructive pulmonary disease, unspecified; Z66 Do not resuscitate; R09.02 Hypoxemia; E86.9 Volume depletion, unspecified; M81.0 Age-related osteoporosis without current pathological fracture; R26.2 Difficulty in walking, not elsewhere classified; I08.0 Rheumatic disorders of both mitral and aortic valves; I73.9 Peripheral vascular disease, unspecified; Z88.8 Allergy status to other drugs, medicaments and biological substances; Z88.2 Allergy status to sulfonamides; Z88.1 Allergy status to other antibiotic agents; Z79.899 Other long term (current) drug therapy; Z79.891 Long term (current) use of opiate analgesic; Z79.51 Long term (current) use of inhaled steroids; Z79.82 Long term (current) use of aspirin; Z87.442 Personal history of urinary calculi; Z98.890 Other specified postprocedural states; Z90.49 Acquired absence of other specified parts of digestive tract; Z79.01 Long term (current) use of anticoagulants; Z87.891 Personal history of nicotine dependence; Z91.041 Radiographic dye allergy status
CPT/HCPCS: 36415; 70450; 71045; 74176; 80053; 81001; 82550; 82553; 82607; 82746; 83690; 83735; 83880; 84145; 84443; 85025; 85027; 85610; 85651; 87040; 87086; 87507; 92610; 93005; 93010; 94640; 94664; 94760; 96360; 97116; 97162; 97166; 97530; 97535; 99285-25; A9270; J2405; J2543; J3420; J7030

== ENCOUNTER 2023-06-16 08:38 | Emergency (ER) | payer MEDICARE, OTHER ==
[~2023-06-16] VITALS: Ht 152.4 cm; Wt 47.6 kg
[~2023-06-16 08:38] MED LIST changes: +B-12500 MC2 PO; +BANATROL PLUS1 EAC1 PO; +CIPR250 PO; +LOSA50 PO; +Macrobid 100 M100 MG PO
[2023-06-16 09:06] LABS: Source, Urine Fem Cath
[2023-06-16 09:09] LABS: Bilirubin, Urine Neg (Neg); Blood, Urine 2+ (Neg); Glucose Qualitative, Urine Neg (Neg); Ketones, Urine Neg (Neg); Leukocyte Esterase, Urine Neg (Neg); Nitrite, Urine Neg (Neg); Protein, Urine 3+ (Neg); Specific Gravity, Urine 1.025 (1.003-1.022); Urobilinogen, Urine NORM (Normal)
[2023-06-16 09:11] LABS: BASOPHILS ABSOLUTE AUTO 0.04 K/mm3 (0.00-0.23); BASOPHILS PERCENT AUTO 1 % (0-2); EOSINOPHILS ABSOLUTE AUTO 0.09 K/mm3 (0.00-0.68); EOSINOPHILS PERCENT AUTO 1 % (0-6); Hematocrit 37.8 % (33.0-51.0); Hemoglobin 12.7 g/dL (11.5-16.0); IMMATURE GRAN ABSOLUTE AUTO 0.02 K/mm3 (0.00-0.10); IMMATURE GRAN PERCENT AUTO 0 % (0-1); LYMPHOCYTES ABSOLUTE AUTO 1.67 K/mm3 (0.84-5.20); LYMPHOCYTES PERCENT AUTO 20 % (21-46); MONOCYTES ABSOLUTE AUTO 0.84 K/mm3 (0.16-1.47); MONOCYTES PERCENT AUTO 10 % (4-13); Mean Corpuscular HGB 30.4 pg (26.0-34.0); Mean Corpuscular HGB Conc 33.6 g/dL (31.5-36.5); Mean Corpuscular Volume 90 fL (80-100); Mean Platelet Volume 10.3 fL (9.1-12.4); NEUTROPHILS ABSOLUTE AUTO 5.87 K/mm3 (1.96-9.15); NEUTROPHILS PERCENT AUTO 69 % (41-73); Platelet Count 118 K/mm3 (150-400); RDW Coefficient Variation 14.6 % (11.7-14.2); RDW Standard Deviation 48.7 fL (35.1-46.3); Red Blood Cell Count 4.18 M/mm3 (3.80-5.20); White Blood Cell Count 8.53 K/mm3 (4.00-11.30)
[2023-06-16 09:19] LABS: Appearance, Urine Hazy (Clear); Color, Urine Yellow (P-Yellow)
[2023-06-16 09:22] LABS: Hyaline Casts 0-2 /lpf (0-2)
[2023-06-16 09:23] LABS: Amorphous Mod (0-Heavy); Bacteria Few /hpf; Renal Epithelial Rare /hpf (0-Rare); Squamous Epithelial Cells Mod /hpf (Few); White Blood Cells, Urine 0-2 /hpf (0-5)
[2023-06-16 09:37] LABS: Albumin, Blood 3.7 g/dL (3.4-5.0); Albumin/Globulin Ratio 0.9 (0.8-1.8); Bilirubin, Total 0.4 mg/dL (0.1-1.0); Bun/Creatinine Ratio 18.4 (12.0-20.0); Calcium, Blood 10.3 mg/dL (8.5-10.1); Creatinine, Blood 1.36 mg/dL (0.40-1.00); Globulin, Blood 3.9 g/dL (2.2-4.0); Potassium, Blood 3.6 mmol/L (3.5-5.5); Total Protein, Blood 7.6 g/dL (6.4-8.2)
[2023-06-16 10:18] LABS: International Normalized Ratio 1.12; Prothrombin Time Results 11.7 Sec (9.7-11.5)
[2023-06-16 11:30] VITALS: BP 148/77
== END 2023-06-16 12:10 | disposition home or self-care (01) ==
LOC: ER 08:38
PROVIDERS: Emergency Medicine
DX: R41.0 Disorientation, unspecified (principal); R53.83 Other fatigue; Z88.2 Allergy status to sulfonamides; Z88.8 Allergy status to other drugs, medicaments and biological substances; Z88.6 Allergy status to analgesic agent; Z88.1 Allergy status to other antibiotic agents; Z79.899 Other long term (current) drug therapy; Z79.01 Long term (current) use of anticoagulants; Z79.82 Long term (current) use of aspirin; J44.9 Chronic obstructive pulmonary disease, unspecified; Z87.891 Personal history of nicotine dependence
CPT/HCPCS: 70450; 71046; 80053; 81001; 84443; 85025; 85610; 93005; 93010; 94640; 94664; 99285-25; P9612

== ENCOUNTER 2023-06-22 10:09 | Emergency (ER) | payer MEDICARE, OTHER ==
[~2023-06-22] VITALS: Ht 152.4 cm; Wt 56.7 kg
[2023-06-22 10:47] LABS: BASOPHILS ABSOLUTE AUTO 0.03 K/mm3 (0.00-0.23); BASOPHILS PERCENT AUTO 0 % (0-2); EOSINOPHILS ABSOLUTE AUTO 0.08 K/mm3 (0.00-0.68); EOSINOPHILS PERCENT AUTO 1 % (0-6); Hematocrit 37.1 % (33.0-51.0); Hemoglobin 12.3 g/dL (11.5-16.0); IMMATURE GRAN ABSOLUTE AUTO 0.02 K/mm3 (0.00-0.10); IMMATURE GRAN PERCENT AUTO 0 % (0-1); LYMPHOCYTES ABSOLUTE AUTO 1.28 K/mm3 (0.84-5.20); LYMPHOCYTES PERCENT AUTO 14 % (21-46); MONOCYTES ABSOLUTE AUTO 0.72 K/mm3 (0.16-1.47); MONOCYTES PERCENT AUTO 8 % (4-13); Mean Corpuscular HGB 30.2 pg (26.0-34.0); Mean Corpuscular HGB Conc 33.2 g/dL (31.5-36.5); Mean Corpuscular Volume 91 fL (80-100); Mean Platelet Volume 9.8 fL (9.1-12.4); NEUTROPHILS ABSOLUTE AUTO 6.77 K/mm3 (1.96-9.15); NEUTROPHILS PERCENT AUTO 76 % (41-73); Platelet Count 163 K/mm3 (150-400); RDW Coefficient Variation 13.6 % (11.7-14.2); RDW Standard Deviation 45.6 fL (35.1-46.3); Red Blood Cell Count 4.07 M/mm3 (3.80-5.20)
[2023-06-22 11:11] LABS: Albumin, Blood 3.2 g/dL (3.4-5.0); Albumin/Globulin Ratio 0.8 (0.8-1.8); Bilirubin, Total 0.6 mg/dL (0.1-1.0); Bun/Creatinine Ratio 16.7 (12.0-20.0); Calcium, Blood 10.2 mg/dL (8.5-10.1); Creatinine, Blood 1.38 mg/dL (0.40-1.00); Potassium, Blood 3.8 mmol/L (3.5-5.5); Total Protein, Blood 7.2 g/dL (6.4-8.2)
[2023-06-22 11:53] LABS: Source, Urine Clean Catch
[2023-06-22 12:59] LABS: Appearance, Urine Clear (Clear); Bilirubin, Urine Neg (Neg); Blood, Urine 1+ (Neg); Color, Urine Yellow (P-Yellow); Glucose Qualitative, Urine Neg (Neg); Ketones, Urine Neg (Neg); Leukocyte Esterase, Urine Neg (Neg); Nitrite, Urine Neg (Neg); Protein, Urine 2+ (Neg); Urobilinogen, Urine NORM (Normal)
[2023-06-22 13:20] LABS: Amorphous Mod (0-Heavy); Bacteria Few /hpf; Squamous Epithelial Cells Few /hpf (Few); White Blood Cells, Urine 0-2 /hpf (0-5)
[2023-06-22 13:21] LABS: Hyaline Casts 0-2 /lpf (0-2)
[2023-06-22 13:49] VITALS: BP 142/78
== END 2023-06-22 13:49 | disposition home or self-care (01) ==
LOC: ER 10:09
PROVIDERS: Physician Assistant
DX: R62.7 Adult failure to thrive (principal); F03.90 Unspecified dementia, unspecified severity, without behavioral disturbance, psychotic disturbance, mood disturbance, and anxiety; R53.81 Other malaise; Z79.899 Other long term (current) drug therapy; Z79.82 Long term (current) use of aspirin
CPT/HCPCS: 51701; 71046; 80053; 81001; 82550; 83605; 85025; 93005; 93010; 99285-25